=== PATIENT | female | born 1980 | race Caucasian/White ===

== ENCOUNTER 2019-08-18 11:03 | Outpatient (CLI) | payer BC ==
--- NOTE | 2019-08-18 13:47 | MMO ---
Bilateral MAMMO Bilat Diag [facility]. CLINICAL HISTORY: Patient is 38 years old and is seen for diagnostic exam. The patient has no family history of breast cancer. The patient has no personal history of cancer. The patient has a history of Implants. VIEWS: The views performed were: bilateral craniocaudal with tomosynthesis; bilateral mediolateral oblique with tomosynthesis; and bilateral mediolateral with tomosynthesis. This study has been interpreted with the assistance of computer-aided detection. MAMMOGRAM FINDINGS: The breasts are heterogeneously dense, which could obscure a lesion on mammography. Normal implants are present. Asymmetric density upper outer left breast. Ultrasound reveals mass at 1 oclock. See ultrasound report. Recommend ultrasound guided biopsy. In the right breast, there are no suspicious masses, calcifications or areas of architectural distortion. IMPRESSION: FINDING IN THE LEFT BREAST IS SUSPICIOUS. BIOPSY IS RECOMMENDED. THE RESULTS OF THIS EXAM WERE SENT TO THE PATIENT. ACR BI-RADS Category 4 - Suspicious abnormality - biopsy should be considered MAMMOGRAPHY NOTE: 1. A negative mammogram report should not delay a biopsy if a dominant of clinically suspicious mass is present. 2. Approximately 10% to 15% of breast cancers are not detected by mammography. 3. Adenosis and dense breasts may obscure an underlying neoplasm. Reported by: BE VERNON MD Electonically Signed: [id number]
--- NOTE | 2019-08-18 14:31 | MMO ---
Left Breast MAMMO Unilat Diag [facility]. CLINICAL HISTORY: Patient is 38 years old and is seen for diagnostic exam. The patient has a history of Implants. VIEWS: The views performed were: . FILMS COMPARED: The present examination has been compared to a prior imaging study performed at [facility] on 08/18/2019. This study has been interpreted with the assistance of computer-aided detection. MAMMOGRAM FINDINGS: The breast is heterogeneously dense, which could obscure a lesion on mammography. Biopsy marker upper outer left breast. IMPRESSION: FINDING IN THE LEFT BREAST IS SUSPICIOUS. Pathology pending. THE RESULTS OF THIS EXAM WERE SENT TO THE PATIENT. ACR BI-RADS Category 4 - Suspicious abnormality - biopsy should be considered MAMMOGRAPHY NOTE: 1. A negative mammogram report should not delay a biopsy if a dominant of clinically suspicious mass is present. 2. Approximately 10% to 15% of breast cancers are not detected by mammography. 3. Adenosis and dense breasts may obscure an underlying neoplasm. Reported by: BE VERNON MD Electonically Signed: [id number]
--- NOTE | 2019-08-18 15:13 | ULT ---
ULTRASOUND LEFT BREAST: Date: 08/18/2019 INDICATION: Ultrasound left breast performed to assess an asymmetry seen on mammography. FINDINGS: At 1 o'clock left breast, there is a hypoechoic mass-like area measuring 0.8 x 0.5 cm. This has irreg ular margins and does show some subtle posterior shadowing. There are scattered cysts in the left breast. There are cysts seen at 10 o'clock which appear benign. No other sonographic abnormality. IMPRESSION: Relatively isoechoic mass lesion at 1 o'clock which is suspicious. Ultrasound-guided biopsy is recomm ended. BI-RADS Category 4 - Suspicious abnormality left breast. Ultrasound-guided biopsy is scheduled.
--- NOTE | 2019-08-19 08:19 | ULT ---
ULTRASOUND GUIDED LEFT BREAST MASS BIOPSY: HISTORY: Breast mass. COMPARISON: Ultrasound and mammogram of the same day. FINDINGS: The patient was brought to the ultrasound suite. All questions were answered. Informed consent was obtained. Timeout performed. The patient's left breast was prepped and draped in normal sterile fashion. Using ultrasound guidance, a total of four 14-gauge 18 mm cores were obtained. The clip was placed i n adequate position on post clip mammogram. The patient tolerated the procedure well without complic ation. IMPRESSION: Technically successful ultrasound-guided breast mass biopsy. POS: HOME
== END 2019-08-18 11:04 | disposition home or self-care (01) ==
LOC: BICMAMMO 11:03
DX: N60.32 Fibrosclerosis of left breast (principal); N62 Hypertrophy of breast; Z98.82 Breast implant status
CPT/HCPCS: 19083; 77066; 88305; 88341; 88342; G0279

== ENCOUNTER 2020-11-11 08:25 | Outpatient (CLI) | payer BC | END 2020-11-11 08:26 | disposition home or self-care (01) | LOC: BICMAMMO 08:25 | PROVIDERS: ATTEND Student in an Organized Health Care Education/Training Program | DX: Z12.31 Encounter for screening mammogram for malignant neoplasm of breast (principal); Z98.82 Breast implant status; Z91.89 Other specified personal risk factors, not elsewhere classified | CPT/HCPCS: 77063; 77067 ==